=== PATIENT | female | born 1990 | race Native Hawaiian/Other Pacific Islander ===

== ENCOUNTER → 2016-07-01 | Outpatient (CLI) | payer MEDICAID ==
--- NOTE | 2016-07-01 09:07 | MM ---
Reason for exam: clinical finding. Baseline mammogram. History: Family history of breast cancer in grandmother at age 60 and breast cancer in cousin at age 23. Indicated problem(s): lump or thickening in the left breast. Physical Findings: Nurse did not find any significant physical abnormalities on exam. MG 3D Diag Mammo W/Cad FRITZ Bilateral CC and MLO view(s) were taken. The breast tissue is extremely dense which could obscure a lesion on mammography. There is no discrete abnormality. These results were verbally communicated with the patient and result sheet given to the patient on 07/01/16. ASSESSMENT: Negative, BI-RAD 1 RECOMMENDATION: Routine screening mammogram of both breasts at age 39.
--- NOTE | 2016-07-01 09:09 | USB ---
Reason for exam: clinical finding. History: Family history of breast cancer in grandmother at age 60 and breast cancer in cousin at age 23. Indicated problem(s): lump or thickening in the left breast. US Breast LT Left breast ultrasound including all four quadrants, the retroareolar region and axilla demonstrates no cystic or solid lesion seen. These results were verbally communicated with the patient and result sheet given to the patient on 07/01/16. ASSESSMENT: Negative, BI-RAD 1 RECOMMENDATION: Routine screening mammogram of both breasts at age 39.
== END | disposition home or self-care (01) ==
LOC: RADMAMWWP 07:59
PROVIDERS: ATTEND Family Medicine
DX: N63 Unspecified lump in breast (principal)
CPT/HCPCS: 76641; G0204; G0279

== ENCOUNTER → 2018-07-02 | Outpatient (CLI) | payer MEDICAID ==
--- NOTE | 2018-07-02 14:01 | XR ---
EXAMINATION TYPE: XR shoulder complete LT DATE OF EXAM: 07/02/2018 CLINICAL HISTORY: pain COMPARISON: NONE TECHNIQUE: Three views of the left shoulder are obtained. FINDINGS: There is no acute fracture/dislocation evident. The acromioclavicular and glenohumeral angel int spaces appear within normal limits. The visualized ribs are intact and unremarkable. IMPRESSION: 1. There is no acute fracture or dislocation. ICD 10 NO FRACTURE, INITIAL EVALUATION
--- NOTE | 2018-07-02 14:02 | XR ---
EXAMINATION TYPE: XR ribs LT DATE OF EXAM: 07/02/2018 CLINICAL HISTORY: Pain, Fall Two views of the ribs fail demonstrate evidence for displaced rib fracture or secondary sign of rib f racture. Visualized lungs are clear. No evidence for pneumothorax. IMPRESSION: No displaced rib fractures seen. ICD 10 NO FRACTURE, INITIAL EVALUATION
== END ==
LOC: RADXRMAIN 11:33
PROVIDERS: ATTEND Family Medicine
DX: M25.512 Pain in left shoulder (principal); R07.82 Intercostal pain

== ENCOUNTER 2019-03-11 11:14 | Emergency (ER) | payer MEDICAID, OTHER ==
[2019-03-11 11:22] VITALS: BP 138/93; PULSE 74; RESP 18; TEMP 98.5
--- NOTE | 2019-03-11 12:19 | ED ---
Recheck HPI - General Chief Complaint: Recheck/Abnormal Lab/Rx Stated Complaint: Needlestick - [facility] Time Seen by Provider: 03/11/19 11:23 Source: patient Mode of arrival: ambulatory Limitations: no limitations - History of Present Illness Initial Comments: Patient is a 28-year-old female presenting to emergency Department with complaints of a needlestick injury that happened at work today. Patient states he was throwing a needle into the needle been when she went to push down the lid stack and a needle scratched her on the palmar aspect of her right hand just proximal to her middle finger. Patient states she thinks it just scratched her brother is still in there. Patient does know the source and did get blood from the source. Patient has no other complaints at this time. Upon arrival to ER, vital signs are stable. - Related Data Home Medications Medication Instructions Recorded Confirmed Multivitamins, Thera [Multivitamin] 1 tab PO DAILY 02/25/16 02/25/16 Allergies Allergy/AdvReac Type Severity Reaction Status Date / Time No Known Allergies Allergy Verified 02/25/16 08:23 Review of Systems ROS Statement: Those systems with pertinent positive or pertinent negative responses have been documented in the HPI. ROS Other: All systems not noted in ROS Statement are negative. Past Medical History Past Medical History: No Reported History History of Any Multi-Drug Resistant Organisms: None Reported Past Surgical History: No Surgical Hx Reported Past Anesthesia/Blood Transfusion Reactions: No Reported Reaction Past Psychological History: Depression Smoking Status: Former smoker Past Alcohol Use History: None Reported Past Drug Use History: None Reported General Exam - General Exam Comments Initial Comments: GENERAL: Well-appearing, well-nourished and in no acute distress. HEAD: Atraumatic, normocephalic. EYES: Pupils equal round and reactive to light, extraocular movements intact, sclera anicteric, conjunctiva are normal. ENT: Nares patent, oropharynx clear without exudates. Moist mucous membranes. LUNGS: Breath sounds clear to auscultation bilaterally and equal. No wheezes rales or rhonchi. HEART: Regular rate and rhythm without murmurs, rubs or gallops. EXTREMITIES: Normal range of motion, no pitting or edema. No clubbing or cyanosis. NEUROLOGICAL: Normal speech, normal gait. PSYCH: Normal mood, normal affect. SKIN: Warm, Dry, normal turgor, no rashes. Patient has a small 0.5 cm to superficial abrasion to the palmar aspect of her right hand, just proximal to the middle finger. Limitations: no limitations Course Vital Signs 03/11/19 11:20 Temperature 98.5 F Pulse Rate 74 Respiratory 18 Rate Blood Pressure 138/93 O2 Sat by Pulse 100 Oximetry Medical Decision Making - Medical Decision Making Patient is a 28-year-old female here for a nurse needlestick injury to her right hand. The source was tested and rapid HIV is negative. Patient is declining HIV prophylaxis at this time. Blood work was obtained. Patient is stable for discharge. Disposition Clinical Impression: Needle stick injury Disposition: HOME SELF-CARE Condition: Stable Instructions (If sedation given, give patient instructions): Needle Stick Injuries (ED) Additional Instructions: Please return to the Emergency Department if symptoms worsen or any other concerns. Is patient prescribed a controlled substance at d/c from ED?: No Referrals: Isauro Mata MD [Primary Care Provider] - 1-2 days
[2019-03-11 19:29] LABS: Hepatitis B Surface AB- Quant 819.5 mIU/mL; Hepatitis B Surface Antibody Reactive (Non-Reactive)
[2019-03-11 19:30] LABS: Hepatitis B Surface Antigen Non-Reactive (Non-Reactive); Hepatitis C IgG Antibody Non-Reactive (Non-Reactive)
[2019-03-11 22:14] LABS: HIV 1 AB Non-Reactive (Non-Reactive); HIV 2 AB Non-Reactive (Non-Reactive); HIV AB P24 Non-Reactive (Non-Reactive); HIV P24 AG Non-Reactive (Non-Reactive)
== END 2019-03-11 13:02 | disposition home or self-care (01) ==
LOC: EC 11:14
DX: Z77.21 Contact with and (suspected) exposure to potentially hazardous body fluids (principal); S60.511A Abrasion of right hand, initial encounter; Z87.891 Personal history of nicotine dependence; W46.0XXA Contact with hypodermic needle, initial encounter; Y99.0 Civilian activity done for income or pay
CPT/HCPCS: 36415; 86706; 86803; 87340; 87390; 99283

== ENCOUNTER 2019-08-02 10:58 | Emergency (ER) | payer MEDICAID, OTHER ==
[2019-08-02 11:15] VITALS: BP 123/94; PULSE 75; TEMP 98.4
[2019-08-02 11:27] VITALS: RESP 18
--- NOTE | 2019-08-02 11:48 | ED ---
URI HPI - General Chief Complaint: Upper Respiratory Infection Stated Complaint: fever, sob Time Seen by Provider: 08/02/19 11:17 Source: patient, RN notes reviewed, old records reviewed Mode of arrival: ambulatory Limitations: no limitations - History of Present Illness Initial Comments: 29-year-old female presents with sinus congestion, productive cough for the past week. Patient ports she typically this time a year he gets upper respiratory infection and cough. Patient reports that she is a nonsmoker. She reports it's been a yellow-green sputum. Patient states she has no fever at this time. She does report low-grade fevers off-and-on. She is here with her daughter. Patient has had no other significant complaints. - Related Data Home Medications Medication Instructions Recorded Confirmed Multivitamins, Thera [Multivitamin] 1 tab PO DAILY 02/25/16 02/25/16 Previous Rx's Medication Instructions Recorded Albuterol Inhaler [Ventolin Hfa 1 - 2 puff INHALATION RT-Q6H PRN 08/02/19 Inhaler] #1 inhaler Azithromycin [Zithromax Z-pack] 250 mg PO DIRECTED #6 tab 08/02/19 methylPREDNISolone Dose Pack 4 mg PO DIRECTED #21 package 08/02/19 [Medrol Dose Pack] Allergies Allergy/AdvReac Type Severity Reaction Status Date / Time No Known Allergies Allergy Verified 02/25/16 08:23 Review of Systems ROS Statement: Those systems with pertinent positive or pertinent negative responses have been documented in the HPI. ROS Other: All systems not noted in ROS Statement are negative. Past Medical History Past Medical History: No Reported History History of Any Multi-Drug Resistant Organisms: None Reported Past Surgical History: No Surgical Hx Reported Past Anesthesia/Blood Transfusion Reactions: No Reported Reaction Past Psychological History: Depression Smoking Status: Former smoker Past Alcohol Use History: None Reported Past Drug Use History: None Reported General Exam - General Exam Comments Initial Comments: Well appearing 29 year old female, no distress. t Limitations: no limitations General appearance: alert, in no apparent distress Head exam: Present: atraumatic, normocephalic, normal inspection Eye exam: Present: normal appearance ENT exam: Present: normal exam, mucous membranes moist Neck exam: Present: normal inspection. Absent: tenderness, meningismus, lymphadenopathy Respiratory exam: Present: normal lung sounds bilaterally. Absent: respiratory distress, wheezes, rales, rhonchi, stridor Cardiovascular Exam: Present: regular rate, normal rhythm, normal heart sounds. Absent: systolic murmur, diastolic murmur, rubs, gallop, clicks GI/Abdominal exam: Present: soft, normal bowel sounds. Absent: distended, tenderness, guarding, rebound, rigid Extremities exam: Present: normal inspection, full ROM, normal capillary refill. Absent: tenderness, pedal edema, joint swelling, calf tenderness Back exam: Present: normal inspection Neurological exam: Present: alert, oriented X3, CN II-XII intact Psychiatric exam: Present: normal affect, normal mood Skin exam: Present: warm, dry, intact, normal color. Absent: rash Course Vital Signs 08/02/19 08/02/19 11:14 11:24 Temperature 98.4 F Pulse Rate 75 Respiratory 16 18 Rate Blood Pressure 123/94 O2 Sat by Pulse 98 Oximetry Medical Decision Making - Medical Decision Making 29-year-old female with productive cough times one week. On lung exam still relatively clear. No significant wheezing. Patient otherwise appears well no distress. 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 Patient at this time has had no travel history. No fever at this time. Patient will be treated For bronchitis with azithromycin and Medrol Dosepak and inhaler. Discussed [id number] treatment and Motrin Tylenol for fever pain. Discussed return parameters. Disposition Clinical Impression: Bronchitis, URI (upper respiratory infection) Disposition: HOME SELF-CARE Condition: Good Instructions (If sedation given, give patient instructions): Upper Respiratory Infection (ED) Additional Instructions: Patient advised to rest, remain hydrated. Use medications as prescribed. Follow-up with your primary care doctor if symptoms continue persist or worsen. Avoid any significant public exposure to avoid spread of illness. Prescriptions: methylPREDNISolone Dose Pack [Medrol Dose Pack] 4 mg PO DIRECTED #21 package Albuterol Inhaler [Ventolin Hfa Inhaler] 1 - 2 puff INHALATION RT-Q6H PRN #1 inhaler PRN Reason: Pain Azithromycin [Zithromax Z-pack] 250 mg PO DIRECTED #6 tab Is patient prescribed a controlled substance at d/c from ED?: No Referrals: Nuno Pelayo Jr, DO [Primary Care Provider] - 1-2 days Time of Disposition: 11:44
== END 2019-08-02 12:07 | disposition home or self-care (01) ==
LOC: EC 10:58
DX: J40 Bronchitis, not specified as acute or chronic (principal); J06.9 Acute upper respiratory infection, unspecified; Z87.891 Personal history of nicotine dependence
CPT/HCPCS: 99285

== ENCOUNTER 2019-08-14 18:47 | Emergency (ER) | payer OTHER ==
[2019-08-14 18:53] VITALS: BP 128/87; PULSE 116; RESP 18; TEMP 99.4
--- NOTE | 2019-08-14 19:22 | ED ---
General Adult HPI - General Chief complaint: Fever Stated complaint: fever, cough Time Seen by Provider: 08/14/19 18:54 Source: patient Mode of arrival: ambulatory Limitations: no limitations - History of Present Illness Initial comments: 29-year-old female patient with no past medical history presents to the emergency department today for evaluation of fever and cough. Patient states on Monday she was in contact with a person who tested positive for COVID-19. Patient states that this person was in her home, spent time there, and touched multiple things in the house. Patient states that over the last couple of days she has developed a dry scratchy throat, dry cough, and low grade fevers. Patient denies any shortness of breath, dizziness, or weakness. Denies any hemoptysis. Patient denies any recent rash, chest pain, abdominal pain, nausea, vomiting, diarrhea, constipation, back pain, numbness, tingling, dizziness, weakness, hematuria, dysuria, urinary urgency, urinary frequency, headache, visual changes, or any other complaints. - Related Data Home Medications Medication Instructions Recorded Confirmed Multivitamins, Thera [Multivitamin] 1 tab PO DAILY 02/25/16 02/25/16 Previous Rx's Medication Instructions Recorded Albuterol Inhaler [Ventolin Hfa 1 - 2 puff INHALATION RT-Q6H PRN 08/02/19 Inhaler] #1 inhaler Azithromycin [Zithromax Z-pack] 250 mg PO DIRECTED #6 tab 08/02/19 methylPREDNISolone Dose Pack 4 mg PO DIRECTED #21 package 08/02/19 [Medrol Dose Pack] Allergies Allergy/AdvReac Type Severity Reaction Status Date / Time No Known Allergies Allergy Verified 08/14/19 19:01 Review of Systems ROS Statement: Those systems with pertinent positive or pertinent negative responses have been documented in the HPI. ROS Other: All systems not noted in ROS Statement are negative. Past Medical History Past Medical History: No Reported History History of Any Multi-Drug Resistant Organisms: None Reported Past Surgical History: No Surgical Hx Reported Past Anesthesia/Blood Transfusion Reactions: No Reported Reaction Past Psychological History: Depression Smoking Status: Former smoker Past Alcohol Use History: None Reported Past Drug Use History: None Reported General Exam Limitations: no limitations General appearance: alert, in no apparent distress, other (This is a well- developed, well-nourished adult female patient in no acute distress. Vital signs upon presentation are temperature 99.4F, pulse 116, respirations 18, blood pressure 128/87, pulse ox 100% on room air.) Eye exam: Present: normal appearance, PERRL, EOMI. Absent: scleral icterus, conjunctival injection, periorbital swelling ENT exam: Present: normal exam, normal oropharynx, mucous membranes moist Respiratory exam: Present: normal lung sounds bilaterally. Absent: respiratory distress, wheezes, rales, rhonchi, stridor Cardiovascular Exam: Present: regular rate, normal rhythm, normal heart sounds. Absent: systolic murmur, diastolic murmur, rubs, gallop, clicks GI/Abdominal exam: Present: soft, normal bowel sounds. Absent: distended, tenderness, guarding, rebound, rigid Neurological exam: Present: alert, oriented X3, CN II-XII intact Psychiatric exam: Present: normal affect, normal mood Skin exam: Present: warm, dry, intact, normal color. Absent: rash Course Vital Signs 08/14/19 18:49 Temperature 99.4 F Pulse Rate 116 H Respiratory 18 Rate Blood Pressure 128/87 O2 Sat by Pulse 100 Oximetry Medical Decision Making - Medical Decision Making 29-year-old female patient presents to the emergency department today for evaluation of low-grade fever, dry cough, and scratchy throat. Physical examination is unremarkable. Lung sounds are clear to auscultation with good air movement. She is 100% on room air. I did discuss possible Covid 19 infecti on with the patient. As the patient currently only has a mild cough and is not experiencing any dyspnea or shortness of breath I do not feel chest x-ray would be beneficial to her at this time. We did discuss these care CT of Covid 19 testing supplies and that we are reserving tests for those who are severely ill or being admitted to the hospital. I did tell her given her symptoms she should quarantine until symptoms resolve and to inform her contacts that she she is ill. She is instructed to follow-up with her primary care physician for recheck as soon as possible. Return parameters were discussed in detail. She verbalizes understanding and agrees with this plan. Disposition Clinical Impression: Suspected 2019 novel coronavirus infection, Fever, Cough Disposition: HOME SELF-CARE Condition: Good Instructions (If sedation given, give patient instructions): Fever in Adults (ED), Upper Respiratory Infection (ED) Additional Instructions: Increase fluids. Rest. Follow-up with your primary care physician for recheck as soon as possible. Take Tylenol and Motrin for fever control. Increase fluids. Rest. Return for any new, worsening, or concerning symptoms. Is patient prescribed a controlled substance at d/c from ED?: No Referrals: Nuno Pelayo Jr, DO [Primary Care Provider] - 1-2 days Time of Disposition: 19:22
== END 2019-08-14 19:37 | disposition home or self-care (01) ==
LOC: EC 18:47
DX: R50.9 Fever, unspecified (principal); R05 Cough; Z20.828 Contact with and (suspected) exposure to other viral communicable diseases; R09.89 Other specified symptoms and signs involving the circulatory and respiratory systems; Z87.891 Personal history of nicotine dependence
CPT/HCPCS: 99283

== ENCOUNTER 2019-08-16 12:38 | Emergency (ER) | payer OTHER ==
[2019-08-16 12:45] VITALS: BP 127/84; PULSE 52; RESP 20; TEMP 98.1
--- NOTE | 2019-08-16 13:06 | ED ---
URI HPI - General Chief Complaint: Upper Respiratory Infection Stated Complaint: Revisit Fever,Cough Time Seen by Provider: 08/16/19 12:46 Source: patient Mode of arrival: ambulatory Limitations: no limitations - History of Present Illness Initial Comments: Patient is a 29-year-old female presenting to emergency Department for a recheck of her symptoms and she is also requesting a influenza swab. Patient was in the ER 2 days ago and it was determined that she should self quarantine for 14 days due to possible Covid fibrous. Patient was very stable and was discharged home so testing was not performed. Patient states she followed up with her PCP who recommended she come in to the ER for influenza testing. Patient states her symptoms have been improving and she is no longer having fevers, a very mild cough and body aches. She has been taking ibuprofen for the symptoms. She denies history of asthma. She denies abdominal pain, chest pain, shortness of breath. She has no other complaints at this time. Upon arrival to ER, her vital signs are stable. - Related Data Home Medications Medication Instructions Recorded Confirmed Multivitamins, Thera [Multivitamin] 1 tab PO DAILY 02/25/16 02/25/16 Previous Rx's Medication Instructions Recorded Albuterol Inhaler [Ventolin Hfa 1 - 2 puff INHALATION RT-Q6H PRN 08/02/19 Inhaler] #1 inhaler Azithromycin [Zithromax Z-pack] 250 mg PO DIRECTED #6 tab 08/02/19 methylPREDNISolone Dose Pack 4 mg PO DIRECTED #21 package 08/02/19 [Medrol Dose Pack] Allergies Allergy/AdvReac Type Severity Reaction Status Date / Time No Known Allergies Allergy Verified 08/16/19 12:45 Review of Systems ROS Statement: Those systems with pertinent positive or pertinent negative responses have been documented in the HPI. ROS Other: All systems not noted in ROS Statement are negative. Past Medical History Past Medical History: No Reported History History of Any Multi-Drug Resistant Organisms: None Reported Past Surgical History: No Surgical Hx Reported Past Anesthesia/Blood Transfusion Reactions: No Reported Reaction Past Psychological History: Depression Smoking Status: Former smoker Past Alcohol Use History: None Reported Past Drug Use History: None Reported General Exam - General Exam Comments Initial Comments: GENERAL: Well-appearing, well-nourished and in no acute distress. HEAD: Atraumatic, normocephalic. EYES: Pupils equal round and reactive to light, extraocular movements intact, sclera anicteric, conjunctiva are normal. ENT: TMs normal, nares patent, oropharynx clear without exudates. Moist mucous membranes. NECK: Normal range of motion, supple without lymphadenopathy or JVD. LUNGS: Breath sounds clear to auscultation bilaterally and equal. No wheezes rales or rhonchi. HEART: Regular rate and rhythm without murmurs, rubs or gallops. ABDOMEN: Soft, nontender, normoactive bowel sounds. No guarding, no rebound. No masses appreciated. : Deferred EXTREMITIES: Normal range of motion, no pitting or edema. No clubbing or cyanosis. NEUROLOGICAL: Normal speech, normal gait. PSYCH: Normal mood, normal affect. SKIN: Warm, Dry, normal turgor, no rashes or lesions noted. Limitations: no limitations Course Vital Signs 08/16/19 12:41 Temperature 98.1 F Pulse Rate 52 L Respiratory 20 Rate Blood Pressure 127/84 O2 Sat by Pulse 99 Oximetry Medical Decision Making - Medical Decision Making Patient is a 29-year-old female here for revisit and also requesting influenza swab. Patient states her PCP, Dr. Pelayo sent her in for influenza swab so she may be up to go back to work. Vital signs are stable. Patient's exam is unremarkable. I discussed with patient that we are unable to perform influenza swab as her supplies are low and we are only saving these for admitted patients. Patient will continue to quarantine at home and she will also follow up with her employer to determine if she is able to go back to work. Patient will follow-up with her PCP as needed. She is stable for discharge. Disposition Clinical Impression: Cough, URI (upper respiratory infection) Disposition: HOME SELF-CARE Condition: Stable Instructions (If sedation given, give patient instructions): Upper Respiratory Infection (ED) Additional Instructions: Please return to the Emergency Department if symptoms worsen or any other concerns. Follow-up with your employer for further recommendations for quarantine. Follow-up with PCP as needed. Continue with Tylenol for symptoms. Is patient prescribed a controlled substance at d/c from ED?: No Referrals: Nuno Pelayo Jr, [Primary Care Provider] - 1-2 days
== END 2019-08-16 13:19 | disposition home or self-care (01) ==
LOC: EC 12:38
DX: J06.9 Acute upper respiratory infection, unspecified (principal); Z87.891 Personal history of nicotine dependence
CPT/HCPCS: 99283

== ENCOUNTER → 2019-11-26 | Outpatient (CLI) | payer SELFPAY | END | disposition home or self-care (01) | LOC: LABWHC1 11:26 | PROVIDERS: ATTEND Family Medicine | DX: Z20.828 Contact with and (suspected) exposure to other viral communicable diseases (principal) ==